=== PATIENT | female | born 1970 | race Caucasian/White ===

== ENCOUNTER 2017-10-27 09:39 | Emergency (ER) | payer BC ==
[~2017-10-27 09:39] MED LIST: HYDR-971 PO; ONDA4TAB7 PO
[2017-10-27] MEDS ORDERED: IV NORMAL SALINE 1,000ML 1,000 ML IV ONE (10:00)
[2017-10-27] MEDS ORDERED: KETOROLAC 30 MG/ML VIAL. IV ONE (10:15)
[2017-10-27] MEDS ORDERED: ONDANSETRON PF 4 MG/2 ML VIAL. IV ONE ×2 (10:15→11:30)
[2017-10-27 10:21] LABS: BASO # 0.1 x10^3/uL (0.0-0.2); BASO % 1 % (0-3); EOS # 0.1 x10^3/uL (0.0-0.7); EOS % 2 % (0-3); HEMATOCRIT 41.6 % (36.0-47.0); HEMOGLOBIN 14.5 g/dL (12.0-15.5); LYMPH # 1.7 x10^3/uL (1.0-4.8); LYMPH % 23 % (24-48); MEAN CORPUSCULAR HEMOGLOBIN 31 pg (25-35); MEAN CORPUSCULAR HGB CONC 35 g/dL (31-37); MEAN CORPUSCULAR VOLUME 90 fL (79-100); MONO # 0.6 x10^3/uL (0.0-1.1); MONO % 8 % (0-9); NEUT # 4.8 x10^3uL (1.8-7.7); NEUT % 66 % (31-73); PLATELET COUNT 285 x10^3/uL (140-400); RED BLOOD COUNT 4.64 x10^6/uL (3.50-5.40); RED CELL DISTRIBUTION WIDTH 12.6 % (11.5-14.5); WHITE BLOOD COUNT 7.3 x10^3/uL (4.0-11.0)
[2017-10-27 10:35] LABS: ALBUMIN 3.3 g/dL (3.4-5.0); ALBUMIN/GLOBULIN RATIO 1.1 (1.0-1.7); CALCIUM 7.9 mg/dL (8.5-10.1); CREATININE 0.8 mg/dL (0.6-1.0); GFR 77.6; POTASSIUM 3.5 mmol/L (3.5-5.1); TOTAL BILIRUBIN 0.2 mg/dL (0.2-1.0); TOTAL PROTEIN 6.4 g/dL (6.4-8.2)
[2017-10-27 10:41] LABS: BACTERIA,URINE 0 /HPF (0-FEW); BILIRUBIN,URINE NEG (NEG); CLARITY,URINE CLEAR; COLOR,URINE YELLOW; GLUCOSE,URINE NEG (NEG); NITRITE,URINE NEG (NEG); RBC,URINE RARE /HPF (0-2); SQUAMOUS EPITHELIAL CELL,UR OCC /LPF; UROBILINOGEN,URINE 0.2 mg/dL (0.2 mg/dL)
[2017-10-27] MEDS ORDERED: diphenhydrAMINE 50 MG/ML VIAL IVP ONE (11:30)
[2017-10-27] MEDS ORDERED: MORPHINE SULFATE 4 MG/ML DISP.SYRIN. IV ONE (11:30)
[2017-10-27 11:45] VITALS: BP 129/62
--- NOTE | 2017-10-27 11:59 | ED.ADGEN ---
Past History Past Medical History: No Pertinent History Past Surgical History: Hysterectomy, Tonsillectomy, Other Alcohol Use: Occasionally Drug Use: None Adult General Chief Complaint Chief Complaint Abdominal pain HPI HPI Patient is a 47-year-old female presents with abdominal cramps, vomiting and diarrhea 3 days. Patient last vomited last evening. She has been able to drink Gatorade but unable to eat solid foods. Patient reports watery diarrhea persists this morning. No fever, bloody stools, recent antibiotics. Denies dizziness lightheadedness. No prior abdominal surgeries. No other acute symptoms or complaints.[] Review of Systems Review of Systems Review symptoms as per history of present illness. All other review symptoms are negative. All other systems were reviewed and found to be within normal limits, except as documented in this note. Current Medications Current Medications Current Medications Medications (Trade) Dose Ordered Sig/Jessica Start Time Stop Time Status Last Admin Dose Admin Diphenhydramine HCl (Benadryl) 25 mg 1X ONCE 10/27/17 11:30 10/27/17 11:31 DC 10/27/17 11:19 25 MG Ketorolac Tromethamine (Toradol) 30 mg 1X ONCE 10/27/17 10:15 10/27/17 10:16 DC 10/27/17 10:17 30 MG Morphine Sulfate (Morphine 4mg Syringe) 4 mg 1X ONCE 10/27/17 11:30 10/27/17 11:31 DC 10/27/17 11:23 4 MG Ondansetron HCl (Zofran) 4 mg 1X ONCE 10/27/17 11:30 10/27/17 11:31 DC 10/27/17 11:17 4 MG Sodium Chloride 1,000 ml @ 1,000 mls/hr 1X ONCE 10/27/17 10:00 10/27/17 10:59 DC 10/27/17 10:16 1,000 MLS/HR Allergies Allergies Allergies Coded Allergies Type Severity Reaction Last Updated Verified erythromycin base Allergy Intermediate 07/08/16 Yes varenicline Allergy Intermediate itching 01/23/17 Yes Physical Exam Physical Exam Constitutional: Well developed, well nourished, no acute distress, non-toxic appearance. [] HENT: Normocephalic, atraumatic, bilateral external ears normal, oropharynx moist, no oral exudates, nose normal. [] Eyes: PERRLA, EOMI, conjunctiva normal, no discharge. [] Neck: Normal range of motion, no tenderness, supple, no stridor. [] Cardiovascular:Heart rate regular rhythm, no murmur [] Lungs & Thorax: Bilateral breath sounds clear to auscultation [] Abdomen: Bowel sounds normal, soft, midepigastric pain, mild tenderness. [] Skin: Warm, dry, no erythema, no rash. [] Back: No tenderness. [] Extremities: No tenderness, no cyanosis, no clubbing, ROM intact, no edema. [] Neurologic: Alert and oriented X 3, normal motor function, normal sensory function, no focal deficits noted. [] Psychologic: Affect normal, judgement normal, mood normal. [] Current Patient Data Vital Signs Vital Signs Date Time Temp Pulse Resp B/P (MAP) Pulse Ox O2 Delivery O2 Flow Rate FiO2 10/27/17 09:45 97.8 89 16 97 Room Air Lab Results Laboratory Tests Test 10/27/17 10:05 10/27/17 10:15 White Blood Count 7.3 x10^3/uL (4.0-11.0) Red Blood Count 4.64 x10^6/uL (3.50-5.40) Hemoglobin 14.5 g/dL (12.0-15.5) Hematocrit 41.6 % (36.0-47.0) Mean Corpuscular Volume 90 fL (79-100) Mean Corpuscular Hemoglobin 31 pg (25-35) Mean Corpuscular Hemoglobin Concent 35 g/dL (31-37) Red Cell Distribution Width 12.6 % (11.5-14.5) Platelet Count 285 x10^3/uL (140-400) Neutrophils (%) (Auto) 66 % (31-73) Lymphocytes (%) (Auto) 23 % (24-48) L Monocytes (%) (Auto) 8 % (0-9) Eosinophils (%) (Auto) 2 % (0-3) Basophils (%) (Auto) 1 % (0-3) Neutrophils # (Auto) 4.8 x10^3uL (1.8-7.7) Lymphocytes # (Auto) 1.7 x10^3/uL (1.0-4.8) Monocytes # (Auto) 0.6 x10^3/uL (0.0-1.1) Eosinophils # (Auto) 0.1 x10^3/uL (0.0-0.7) Basophils # (Auto) 0.1 x10^3/uL (0.0-0.2) Sodium Level 141 mmol/L (136-145) Potassium Level 3.5 mmol/L (3.5-5.1) Chloride Level 107 mmol/L (98-107) Carbon Dioxide Level 25 mmol/L (21-32) Anion Gap 9 (6-14) Blood Urea Nitrogen 6 mg/dL (7-20) L Creatinine 0.8 mg/dL (0.6-1.0) Estimated GFR (Cockcroft-Gault) 77.6 BUN/Creatinine Ratio 8 (6-20) Glucose Level 94 mg/dL (70-99) Calcium Level 7.9 mg/dL (8.5-10.1) L Total Bilirubin 0.2 mg/dL (0.2-1.0) Aspartate Amino Transferase (AST) 19 U/L (15-37) Alanine Aminotransferase (ALT) 21 U/L (14-59) Alkaline Phosphatase 100 U/L (46-116) Total Protein 6.4 g/dL (6.4-8.2) Albumin 3.3 g/dL (3.4-5.0) L Albumin/Globulin Ratio 1.1 (1.0-1.7) Urine Collection Type Unknown Urine Color Yellow Urine Clarity Clear Urine pH 7.5 Urine Specific Sprague 1.020 Urine Protein Neg (NEG-TRACE) Urine Glucose (UA) Neg mg/dL (NEG) Urine Ketones (Stick) Neg mg/dL (NEG) Urine Blood Neg (NEG) Urine Nitrite Neg (NEG) Urine Bilirubin Neg (NEG) Urine Urobilinogen Dipstick 0.2 mg/dL (0.2 mg/dL) Urine Leukocyte Esterase Neg (NEG) Urine RBC Rare /HPF (0-2) Urine WBC 1-4 /HPF (0-4) Urine Squamous Epithelial Cells Occ /LPF Urine Bacteria 0 /HPF (0-FEW) Urine Mucus Mod /LPF EKG EKG [] Radiology/Procedures Radiology/Procedures [] Course & Med Decision Making Course & Med Decision Making Pertinent Labs and Imaging studies reviewed. (See chart for details) [Labwork reassuring. Abdomen remains soft, nonsurgical. Symptoms improved with treatment will continue supportive treatment with close PCP follow-up. Return precautions reviewed.] Final Impression Final Impression [] Problems: Dragon Disclaimer Dragon Disclaimer This electronic medical record was generated, in whole or in part, using a voice recognition dictation system. ESTUARDO LANDAVERDE DO Oct 27, 2017 11:59
== END 2017-10-27 11:45 | disposition home or self-care (01) ==
LOC: ER 09:39
DX: R10.13 Epigastric pain (principal); R19.7 Diarrhea, unspecified; R11.10 Vomiting, unspecified; Z90.710 Acquired absence of both cervix and uterus; Z88.1 Allergy status to other antibiotic agents
CPT/HCPCS: 36415; 80053; 81001; 85025; 96361; 96374; 96375; 96376; 99284; J1200; J1885; J2270; J2405; J7030

== ENCOUNTER 2020-11-23 10:09 | Emergency (ER) | payer BC, OTHER ==
[~2020-11-23] VITALS: Ht 167.6 cm; Wt 64.5 kg
[~2020-11-23 10:09] MED LIST changes: +HYDR-3165 PO; -HYDR-971 PO
[2020-11-23 10:20] VITALS: BP 112/63
[2020-11-23] MEDS ORDERED: DICL100G18 TP (10:54)
--- NOTE | 2020-11-23 10:54 | PHYS DOC ---
Past History Past Medical History: No Pertinent History Past Surgical History: Hysterectomy, Tonsillectomy, Other Alcohol Use: Occasionally Drug Use: None Adult General Chief Complaint Chief Complaint: TOE PROBLEM [facility] Patient is a 50-year-old female who presents to the emergency room complaining of toe pain after catching it on the corner of the door. She states that the toe bent sideways and is now painful to walk on. She denies any other injuries. She states that she has aching pain in it all the time and has a pain that shoots up from her toe of her leg when she walks. She denies any swelling. Review of Systems Review of Systems Complete ROS is negative unless otherwise documented in HPI Allergies Allergies Allergies Coded Allergies Type Severity Reaction Last Updated Verified erythromycin base Allergy Intermediate 07/08/16 Yes varenicline Allergy Intermediate itching 01/23/17 Yes Physical Exam Physical Exam General: Awake, alert, NAD. Well Nourished, well hydrated. Cooperative HEENT: Atraumatic, EOMI, PERRL, airway patent, moist oral mucosa Neck: Supple, trachea midline MSK: Left foot: Tenderness to the fifth toe, no swelling, no deformity Skin: Warm, dry, intact Neuro: A&O x3, speech NL, sensory and motor grossly intact, no focal deficits Psych: Normal affect, normal mood, not suicidal or homicidal Current Patient Data Vital Signs Vital Signs Date Time Temp Pulse Resp B/P (MAP) Pulse Ox O2 Delivery O2 Flow Rate FiO2 11/23/20 10:20 97.9 92 16 112/63 (79) 99 Room Air EKG EKG [] Radiology/Procedures Radiology/Procedures [] Heart Score Risk Factors: Risk Factors: DM, Current or recent (<one month) smoker, HTN, HLP, family history of CAD, obesity. Risk Scores: Risk Factors: DM, Current or recent (<one month) smoker, HTN, HLP, family history of CAD, obesity. Course & Med Decision Making Course & Med Decision Making Pertinent Labs and Imaging studies reviewed. (See chart for details) Patient 42-year-old female presents to the emergency room complaining of toe pain. X-ray was done and is negative. We discussed farzaneh taping. Patient's test results and vitals while in the ED were fully reviewed and discussed with the patient. Patient is stable and at this time does not need admission to the hospital. We have discussed strict return precautions and the importance of following up with their Primary Care Physician. Patient stated understanding and was given an opportunity to ask any questions. Patient is in agreement with plan. Paulina Disclaimer Paulina Disclaimer This electronic medical record was generated, in whole or in part, using a voice recognition dictation system. Departure Departure: Impression: Primary Impression: Toe sprain Disposition: 01 DC HOME SELF CARE/HOMELESS Condition: STABLE Referrals: PCP,UNKNOWN (PCP) Patient Instructions: Farzaneh Taping of Toes Scripts Diclofenac Sodium (VOLTAREN) 100 Gm Gel..gram. 1 GM TP QID for pain for 30 Days, #1 EACH 0 Refills apply to affected area(s) Prov: MATTEO SMITH MD 11/23/20 MATTEO SMITH MD Nov 23, 2020 10:54
--- NOTE | 2020-11-23 11:03 | RAD ---
XR RT TOE 2+ VIEWS History: Reason: pain / Spl. Instructions: / History: Technique: AP view of the foot and 2 additional views of the fifth digit. Comparison: None. Findings: Postoperative changes first digit and metatarsal. Normal alignment. No fracture. Impression: 1. No acute osseous abnormalities. Electronically signed by: Nehemiah Gordon DO (11/23/2020 11:00 AM) [id number]
== END 2020-11-23 10:57 | disposition home or self-care (01) ==
LOC: ER 10:09
DX: S93.501A Unspecified sprain of right great toe, initial encounter (principal); Z88.1 Allergy status to other antibiotic agents; W23.0XXA Caught, crushed, jammed, or pinched between moving objects, initial encounter; Y93.89 Activity, other specified; Y92.89 Other specified places as the place of occurrence of the external cause; Y99.8 Other external cause status
CPT/HCPCS: 73660; 99283

== ENCOUNTER → 2021-11-15 | Outpatient (CLI) | payer OTHER ==
[~2021-11-15] MED LIST changes: +DICL100G18 TP
[2021-11-15] MEDS: IOHEXOL 300 MG/ML 75 ML VIAL. IV ONE (08:24)
--- NOTE | 2021-11-15 09:34 | RAD ---
Exam Date: 11/15/2021 9:[address] NECK SOFT TISSUE WITH IV CONTRAST Indication: Reason: FEELS LIKE LUMP IN THROAT AT TOP OF STERNUM / Spl. Instructions: / History: . Technique: CT examination of the neck was performed with intravenous contrast. One or more of the fo [facility] dose reduction techniques were utilized: *Automated exposure control (AEC) *Adjustment of mA and/or kV according to patient size *Use of iterative reconstruction technique *CT scan done according to ALARA, or ALARA/IMAGE GENTLY Findings: The aerodigestive structures are within normal limits. Specifically, no nasopharyngeal, base of tongu e or laryngeal masses are identified. Prevertebral, nasopharyngeal, and oropharyngeal soft tissues ar e within normal limits. No lymphadenopathy is seen. The parotid and submandibular glands are normal. The thyroid gland is normal. The orbits and orbital content are unremarkable. Limited evaluation o f the brain parenchyma demonstrates no focal abnormality. Evaluation of the lung apices demonstrates no abnormalities. Degenerative changes are seen in the spine. Impression: No acute abnormality identified. Electronically signed by: Edwin Bennett MD (11/15/2021 9:32 AM) [facility]
--- NOTE | 2021-11-15 09:41 | RAD ---
Esophagram 11/15/2009 CLINICAL HISTORY: Lump in throat. TECHNIQUE: An esophagram was performed under fluoroscopic control. The total fluoroscopic time is 2.1 minutes. 8 digital spot radiographs were obtained. FINDINGS: Comparison is made to a CT scan of the neck performed earlier in the day. The mucosal pattern of the hypopharynx, esophagus and GE junction is within normal limits. Tertiary c ontractions of the esophagus are seen consistent with mild esophageal dysmotility. This particularly involves the proximal esophagus. No gastroesophageal reflux is seen. IMPRESSION: Mild esophageal dysmotility. Otherwise negative study. Electronically signed by: Graham Allan MD (11/15/2021 9:38 AM) [id number]
== END ==
LOC: RAD 07:46
PROVIDERS: ATTEND Internal Medicine Gastroenterology
DX: R19.8 Other specified symptoms and signs involving the digestive system and abdomen (principal)
CPT/HCPCS: 70491; 74220; Q9967